=== PATIENT | male | born 1940 | race Caucasian/White ===

== ENCOUNTER 2018-05-12 15:40 | Emergency (ER) | payer MEDICARE, MEDICAID ==
[~2018-05-12] VITALS: Ht 175.3 cm; Wt 61.4 kg
[2018-05-12 16:08] VITALS: BP 134/58
--- NOTE | 2018-05-12 17:42 | NUR ---
PT IS REFUSING TO PUT ON A GOWN. PT TOLD DR CARNES THAT HE ONLY WANTS ONE XRAY.
[2018-05-12] MEDS ORDERED: traMADol 50MG tablet PO ONE (17:45)
== END 2018-05-12 18:17 | disposition home or self-care (01) ==
LOC: ER 15:41
DX: S40.011A Contusion of right shoulder, initial encounter (principal); S09.90XA Unspecified injury of head, initial encounter; Z88.6 Allergy status to analgesic agent; Z88.8 Allergy status to other drugs, medicaments and biological substances; Z59.0 Homelessness; Y04.0XXA Assault by unarmed brawl or fight, initial encounter; Y93.89 Activity, other specified; Y92.89 Other specified places as the place of occurrence of the external cause; Y99.8 Other external cause status
CPT/HCPCS: 73030; 99283